=== PATIENT | male | born 1960 | race Caucasian/White ===

== ENCOUNTER 2022-12-22 10:45 | Day surgery (SDC) | payer OTHER ==
[~2022-12-22] VITALS: Ht 180.3 cm; Wt 100.8 kg
[2022-12-22] MEDS ORDERED: LEVSOD25 (10:58)
[2022-12-22] MEDS ORDERED: EZET10 (10:58)
[2022-12-22] MEDS ORDERED: TESTOSTERONE100 MG (10:59)
[2022-12-22] MEDS ORDERED: [UNRECOGNIZED DRUG - OTHER] (11:00)
[2022-12-22] MEDS ORDERED: OMEGA-3 + VITA200 ML (11:01)
[2022-12-22] MEDS ORDERED: CURAMED (11:02)
[2022-12-22] MEDS ORDERED: [UNRECOGNIZED DRUG - OTHER] (11:02)
[2022-12-22 13:18] VITALS: BP 107/74
== END 2022-12-22 13:20 | disposition home or self-care (01) ==
LOC: ORSCSDS 10:45
PROVIDERS: Specialist
PROC: 0DBL8ZX Excision of Transverse Colon, Via Natural or Artificial Opening Endoscopic, Diagnostic (ICD-10-PCS; principal; 2022-12-22 12:00)
PROC: 0DBN8ZX Excision of Sigmoid Colon, Via Natural or Artificial Opening Endoscopic, Diagnostic (ICD-10-PCS; principal; 2022-12-22 12:00)
DX: Z12.11 Encounter for screening for malignant neoplasm of colon (principal); Z86.010 Personal history of colon polyps; D12.3 Benign neoplasm of transverse colon; K63.5 Polyp of colon; K64.8 Other hemorrhoids; K57.30 Diverticulosis of large intestine without perforation or abscess without bleeding; Z79.899 Other long term (current) drug therapy
CPT/HCPCS: 88305; J2001; J2704; J7120